=== PATIENT | male | born 1980 | race Caucasian/White ===

== ENCOUNTER → 2022-03-28 | Day surgery (SDC) | payer OTHER ==
[~2022-03-28] MED LIST: FENTANYL CITRATE/PF 100MCG/2 ML INJ ONE; LIDOCAINE HCL 2% LOCAL INJ 5 ML SDV VIAL INJ ONE; METOCLOPRAMIDE HCL 10 MG/2ML VIAL ONE; MIDAZOLAM HCL 2 MG/2 ML VIAL ONE; OMEPRAZOLE40 MG PO; PEPCID20 MG PO; POVIDONE IODINE 0.05% 0.05 % ML PO ONE; PROPOFOL IV EMULSION 10 MG/ML 20 ML VIAL ONE
[2022-03-28 13:05] VITALS: BP 113/78
== END | disposition home or self-care (01) ==
LOC: OR 09:11
PROVIDERS: ATTEND Internal Medicine Gastroenterology
DX: K29.50 Unspecified chronic gastritis without bleeding (principal); K22.70 Barrett's esophagus without dysplasia; K20.90 Esophagitis, unspecified without bleeding; K21.9 Gastro-esophageal reflux disease without esophagitis; Z01.810 Encounter for preprocedural cardiovascular examination
CPT/HCPCS: 43239; 93005; C9113; J2001; J2250; J2704; J2765; J3010